=== PATIENT | female | born 1960 | race African-American/Black ===

== ENCOUNTER 2019-05-26 19:24 | Inpatient (IN) | payer MEDICAID ==
[~2019-05-26] VITALS: Ht 165.1 cm; Wt 72.1 kg
[2019-05-26] MEDS ORDERED: HYDROCODONE/ACETAMINOPHEN 5/325MG TABLET PO ONE (20:15)
[2019-05-26] MEDS ORDERED: KETOROLAC 60MG/2ML VIAL IM ONE (22:15)
[2019-05-26] MEDS ORDERED: ONDANSETRON HCL 4MG/2ML INJ IV ONE (23:00)
[2019-05-26] MEDS ORDERED: MORPHINE SULFATE 4 MG/ML CPJ (NOT FOR IM USE) IV ONE (23:00)
[2019-05-27] MEDS ORDERED: HYDROCODONE/ACETAMINOPHEN 5/325MG TABLET PO ONE (08:00)
[2019-05-27 14:38] VITALS: BP 103/54
[2019-05-27 16:00] VITALS: BP 103/54
[2019-05-27] MEDS ORDERED: HYDROCODONE/ACETAMINOPHEN 5/325MG TABLET PO PRN (16:45)
[2019-05-27] MEDS ORDERED: LISI-186 PO (16:47)
[2019-05-27] MEDS ORDERED: ASPI-1393 PO (16:49)
[2019-05-27] MEDS ORDERED: CARV3.1242 MT (16:52)
[2019-05-27] MEDS ORDERED: ATOR10TA69 PO (16:54)
[2019-05-27] MEDS ORDERED: PNEUMOCOCCAL 23-VAL P-SAC VAC 0.5 ML IM ONE (17:30)
[2019-05-27] MEDS ORDERED: INFLUENZA VIRUS VACCINE(AFLURIA) 0.5ML SYR IM ONE (17:30)
[2019-05-27] MEDS: MORPHINE SULFATE 2 MG/ML CPJ (NOT FOR IM USE) IV PRN (18:29)
[2019-05-27 20:00] VITALS: BP 118/53
[2019-05-28] VITALS (9 sets, daily range): BP systolic 109–143; BP diastolic 58–86
[2019-05-28 06:58] LABS: CHLORIDE 104 mEq/L (98-107)
[2019-05-28 07:55] LABS: BASOPHILS % 0.4 % (0.0-2.0); EOSINOPHILS % 1.4 % (0.0-5.0); LYMPHOCYTES % 19.1 % (20.0-50.0); MEAN CORPUSCULAR HEMOGLOBIN 26.9 pg (28.0-32.0); MEAN CORPUSCULAR VOLUME 82.4 fL (81.0-99.0); MEAN PLATELET VOLUME 7.1 fl (7.4-10.4); MONOCYTES % 11.7 % (2.0-8.0); NEUTROPHILS % 67.4 % (40.0-76.0); PLATELET 326 x1000/uL (130-400); RED BLOOD CELL COUNT 2.43 mill/uL (4.2-5.4); RED CELL DISTRIBUTION WIDTH 18.9 % (11.6-14.6)
[2019-05-28 08:44] LABS: HEMOGLOBIN. 6.5 g/dL (12.0-16.0)
[2019-05-28] MEDS ORDERED: ENOXAPARIN 40MG/0.4ML SYR SUBCUT SCH (09:00)
[2019-05-28] MEDS: ASPIRIN 81MG EC TABLET PO SCH (09:41)
[2019-05-28] MEDS: LISINOPRIL 5MG TABLET PO SCH (09:41)
[2019-05-28 13:18] LABS: MEAN CORPUSCULAR HEMOGLOBIN 27.1 pg (28.0-32.0); MEAN CORPUSCULAR VOLUME 82.8 fL (81.0-99.0); PLATELET 327 x1000/uL (130-400); RED BLOOD CELL COUNT 2.53 mill/uL (4.2-5.4)
[2019-05-28 13:22] LABS: HEMOGLOBIN 6.9 g/dL (12.0-16.0)
[2019-05-28] MEDS: MORPHINE SULFATE 2 MG/ML CPJ (NOT FOR IM USE) IV PRN ×2 (13:32→22:03)
[2019-05-29] VITALS: BP 128/63
[2019-05-29 00:46] VITALS: BP 121/64
[2019-05-29 03:31] LABS: BASOPHILS % 0.9 % (0.0-2.0); EOSINOPHILS % 1.2 % (0.0-5.0); HEMATOCRIT. 22.8 % (36.0-48.0); HEMOGLOBIN. 7.6 g/dL (12.0-16.0); LYMPHOCYTES % 19.2 % (20.0-50.0); MEAN CORPUSCULAR HEMOGLOBIN 27.4 pg (28.0-32.0); MEAN CORPUSCULAR VOLUME 82.7 fL (81.0-99.0); MEAN PLATELET VOLUME 6.8 fl (7.4-10.4); MONOCYTES % 11.8 % (2.0-8.0); NEUTROPHILS % 66.9 % (40.0-76.0); PLATELET 321 x1000/uL (130-400); RED BLOOD CELL COUNT 2.76 mill/uL (4.2-5.4); RED CELL DISTRIBUTION WIDTH 17.6 % (11.6-14.6)
[2019-05-29 03:44] LABS: CHLORIDE 103 mEq/L (98-107)
[2019-05-29 04:00] VITALS: BP 138/85
[2019-05-29 08:00] VITALS: BP 103/53
[2019-05-29 08:06] VITALS: BP 130/80
[2019-05-29 08:52] VITALS: BP 105/60
[2019-05-29] MEDS: ASPIRIN 81MG EC TABLET PO SCH (08:52)
[2019-05-29] MEDS: LISINOPRIL 5MG TABLET PO SCH (08:52)
== END 2019-05-29 12:30 | disposition home or self-care (01) | DRG 351 ==
LOC: ER 19:24 → EDBD 19:24 → 6EST 23:50 → ENRESERV 05-27 13:29
PROVIDERS: ADMIT Internal Medicine; ATTEND Internal Medicine
PROC: 30233N1 Transfusion of Nonautologous Red Blood Cells into Peripheral Vein, Percutaneous Approach (ICD-10-PCS; principal; 2019-05-28)
DX: M16.0 Bilateral primary osteoarthritis of hip (principal); C14.0 Malignant neoplasm of pharynx, unspecified; M41.9 Scoliosis, unspecified; D64.9 Anemia, unspecified; E78.5 Hyperlipidemia, unspecified; I10 Essential (primary) hypertension; M89.9 Disorder of bone, unspecified; M47.896 Other spondylosis, lumbar region; I25.10 Atherosclerotic heart disease of native coronary artery without angina pectoris; Z85.3 Personal history of malignant neoplasm of breast; Z88.0 Allergy status to penicillin
CPT/HCPCS: 36415; 72192; 73502; 80048; 85027; 86850; 86900; 86920; 90686; 90732; 97162; 99285; J1885; J2270; J2405; P9016